=== PATIENT | female | born 1950 | race Asian ===

== ENCOUNTER 2016-10-21 19:34 | Emergency (ER) | payer OTHER ==
[2016-10-21 20:37] LABS: BASOPHIL % 0.3 % (0-2); PLATELET COUNT 184 x10^3mcL (130-400); RED CELL DISTRIBUTION WIDTH 11.8 % (11.5-14.5)
[2016-10-21 20:50] LABS: ALBUMIN 4.3 g/dL (3.4-5.0); ALKALINE PHOSPHATASE 97 U/L (46-116); ALT/SGPT 22 U/L (14-59); AST/SGOT 32 U/L (15-37); BILIRUBIN TOTAL 0.48 mg/dL (0.20-1.00); CARBON DIOXIDE 21.1 mmol/L (21-32); CHLORIDE SERUM 102 mmol/L (98-107); CREATININE SERUM 0.8 mg/dL (0.6-1.0); GFR1 > 60 mL/min; GLUCOSE SERUM 149 mg/dL (74-106); SODIUM SERUM 140 mmol/L (136-145); TOTAL PROTEIN, SERUM 7.8 g/dL (6.4-8.2)
[2016-10-21 20:52] LABS: POTASSIUM SERUM 2.8 mmol/L (3.5-5.1)
[2016-10-21 21:39] LABS: CK-MB 0.5 ng/mL (0-3.6)
[2016-10-21 23:42] VITALS: BP 140/73
== END 2016-10-21 23:42 | disposition home or self-care (01) ==
LOC: ED 19:34
PROVIDERS: Emergency Medicine
DX: R42 Dizziness and giddiness (principal); R20.0 Anesthesia of skin; R07.89 Other chest pain; R11.10 Vomiting, unspecified; I10 Essential (primary) hypertension; E87.6 Hypokalemia
CPT/HCPCS: 36415; 83880; J8597; Q0092; Q0162